=== PATIENT | female | born 1990 | race Caucasian/White ===

== ENCOUNTER 2022-02-08 18:25 | Observation (INO) | payer MEDICAID, SELFPAY ==
[2022-02-08 18:27] VITALS: BP 121/85; PULSE 88; RESP 16; TEMP 36.1; O2SAT 97; BMI 24.8
--- NOTE | 2022-02-08 19:03 | EX.ED.SAOD ---
HPI History of Present Illness Chief Complaint: Substance Abuse Detail of Chief Complaint: Requesting detox Informant: patient and parent Onset/Context/Timing Onset: Month(s) Timing: Continuous Current Severity: Mild Maximum Severity: Mild Narrative Narrative: 31-year-old female with history of PTSD and polysubstance abuse. States she has been abusing fentanyl and heroin. She does skin popping. Is requesting detox. States she has been detoxed around 2 dozen times in the past. Last use was several hours ago. Last several days has had some withdrawal symptoms currently none. Prior similar symptoms: Yes Recent Illness/Hospitalization: No PFSH PFSH Home Medications No Known/Unobtainable [No Known Home Medications] 10/02/13 [History Last Taken Unknown] Allergy/AdvReac Type Severity Reaction Status Date / Time No Known Allergies Allergy Verified 02/08/22 18:26 Social History Smoking Status: Current every day smoker tobacco type: cigarettes ROS ROS ED ROS Narrative Withdrawal symptoms. Review of Systems ROS Unobtainable: Denies due to encephalopathy Constitutional Constitutional ED: Denies chills or fever(s) ENT ENT ED: Denies ear pain Cardiovascular Cardiovascular: Denies chest pain Respiratory/Chest Respiratory/Chest: Denies cough or dyspnea Gastrointestinal Gastrointestinal: Reports diarrhea, nausea and vomiting; Denies abdominal pain Genitourinary Genitourinary ED: Denies dysuria Musculoskeletal Musculoskeletal: Denies arthralgias Integumentary Denies abscess Neurologic Neurologic: Denies headache(s) Psychiatric Psychiatric: Reports anxiety Endocrine Endocrinology: Denies cold intolerance Hematologic/Lymphatic Hematologic/Lymphatic: Denies easy bleeding Allergic/Immunologic Allergic/Immunologic ED: Denies mouth swelling or tongue swelling EXAM Physical Exam Narrative Exam Narrative: 31-year-old female no acute distress.. Patient emotional and tearful. Speaking rapidly. Mom present in room. H EENT exam unremarkable. Poor dentition. Neck nontender no lymphadenopathy. Lungs clear to auscultation bilaterally. Heart regular rate and rhythm rate about 90 no murmur. Chest wall nontender. Abdomen soft nontender. Moving all 4 extremities. Skin popping sewell on her hands and chest. Neurologically she is awake and alert. No focal motor or Const Vital Signs: 02/08/22 18:27 Temperature 97.0 F L Temperature Source Temporal Pulse Rate 88 Respiratory Rate 16 Blood Pressure 121/85 H Blood Pressure Mean 97 Pulse Ox 97 Oxygen Delivery Method Room Air Positive well nourished and well developed; Negative for obese, cachectic, contractures or unkempt General Appearance ED: well developed and NAD; Negative for unkempt, cachectic, contractures or pallor Nutritional Appearance: Negative for cachectic or obese HEENT Reports moist mucous membranes; Denies dry mucous membranes atraumatic; Negative for trauma or tenderness Mouth ED: No dry mucous membranes Mouth: No dry mucous membranes Eyes PERRL and EOMs intact bilaterally General Eye ED: Negative for pale conjunctiva or scleral icterus Neck no lymphadenopathy, supple and no JVD Thyroid: Negative for tender Lymph Lymphatic: no lymphadenopathy noted; Negative for lymphadenopathy or other Chest Wall inspection of chest normal and palpation of chest normal Resp normal respiratory effort and clear to auscultation bilaterally Effort and Inspection: Negative for retractions Auscultation: Negative for rales, rhonchi or wheezes Cardio regular rate, regular rhythm, S1 normal heart sound, S2 normal heart sound and no murmurs Rate: Negative for bradycardia or tachycardic GI soft to palpation, non-tender, non-distended and no masses Inspection: Negative for abdominal distention Auscultation: Negative for hyperactive bowel sounds Palpation: Negative for tender or guarding Back/Spine no CVA tenderness General Back: Negative for CVA tenderness Cervical Spine: Negative for cervical spine tenderness Thoracic Spine / Upper Back: Negative for thoracic spinal tenderness Lumbar Spine / Lower Back: Negative for lumbar spinal tenderness Coccyx: Negative for swelling Neuro oriented x3 and CN's II-XII intact bilaterally Sensorium / Orientation: alert, oriented to person, oriented to place and oriented to time; Negative for confused, lethargic or stuporous Speech: speech normal Motor Exam: strength 5/5 throughout Psych mental status grossly normal and thought process normal Appearance: Negative for unkempt Attitude: No belligerent, No agitated, No aggressive and No hostile Mood & Affect: anxious and tearful Skin Skin Narrative: Skin popping sewell. General Skin Exam: Negative for jaundice or pallor Lesions: no lesions Rashes: no rashes MDM MDM MDM Narrative Medical decision making narrative: 31-year-old female has had multiple detoxes over many years. Last use was in the last several hours. Requesting detox for heroin and fentanyl abuse. Discussed with the hospitalist admission but the patient wants to see if she can first get into a longer term detox facility. Hospitalist on page for admission. INR written for the patient's admission. Nurse walked into give her a nicotine patch. Patient was extremely rude and cursed at the nurse. And then left without being discharged. Discharge Plan Triage Chief Complaint: Substance Abuse ED Provider: José Arauz Dx/Rx/DC Orders Clinical Impression: Polysubstance abuse, Heroin abuse, Desire for detoxification Prescriptions: No Action No Known Home Medications Primary Care Provider: Care Physician,No Primary Referrals: Care Physician,No Primary [Primary Care Provider] - Disposition Disposition: Elopement
--- NOTE | 2022-02-08 19:35 | ED.RN ---
patient found outside smoking cigarette, patient was reminded that this is a nonsmoking facility. Pt informed that she can no longer smoke while she is a patient of the hospital, pt informed again that all belonings will be taken when she is admitted for detox. security and HRO at bedside. Pt was informed that if she left the building again she would be considered LAMA.
--- NOTE | 2022-02-08 20:26 | ED.RN ---
This RN called to the room where patient and HRO are speaking. Patient is trying to leave again to smoke. This RN reminds her that she can not do that she will no longer be a patient if she leaves. This RN offered patient nictoine patch. Pt states fuck you and your nicotine patch and patient stormed past HRO and this RN and went outside to smoke. Pt and mother enter ED again, pt states she didn't understand the rules. Pt now back in the room, patient is agreeable and signs the rules for the RAMP program. Pt undresses and places everything in patient bags. Nicotine patch placed per JUN. Pt requesting STD's checks. Dr Arauz and Dr Haywood made aware.
--- NOTE | 2022-02-08 20:37 | PCM.HP.STD ---
HPI - General General Date of Admission: 02/08/22 Date of Service: 02/08/22 Chief Complaint: Acute Opiate Withdrawal HPI Narrative The patient is a 31 y/o F w/ PMHx: Polysubstance abuse (fentanyl, history of heroin prior, reports snorting, uses 3.5 gm daily), Borderline personality disorder/PTSD/Anxiety and Depression, Tobacco use, Chronic neuropathy who presents to the [facility] ED on 02/08/22 w/ noted acute opiate withdrawal onset starting just prior to presentation following last dose prior to presentation but less usage on day of presentation than the day prior with generalized body aches and pains, fatigue, restless leg, notable increased anxiety. She also notes a left breast wound that drained purulent material prior and now is firm underneath with no redness on the breast itself, mildly tender without fevers. Patient interested in attaining clean status. In the ED included T 97, heart rate 88, BP 121/85, respiratory rate 16, 97% on room air. Hospital service ordered CBC, CMP and urine testing as well as requested urine drug screen and ethyl alcohol level. Discussed with ED staff and noted that patient will need to remain in the ED until urine was confirmed negative. In the ED patient was initially agitated and wanted to leave several times to smoke but eventually calmed and returned to her room. [facility] Medical History Anxiety and depression Borderline personality disorder Polysubstance abuse PTSD (post-traumatic stress disorder) Tobacco use Home Medications No Known/Unobtainable [No Known Home Medications] 10/02/13 [History Last Taken Unknown] Allergy/AdvReac Type Severity Reaction Status Date / Time No Known Allergies Allergy Verified 02/08/22 18:26 Family History (Updated 02/08/22 @ 20:[address] Malia Haywood MD) Mother Borderline personality disorder other (Patient notes her father young without medical issues (HD, DM, CA) in MVA.) Surgical History (Updated 02/08/22 @ 20:[address] Malia Haywood MD) History of appendectomy History of cholecystectomy Social History (Updated 02/08/22 @ 20:[address] Malia Haywood MD) housing: other details: Lives with her grandmother. Smoking Status: Current every day smoker tobacco type: cigarettes Smoking packs per day: 1.5 Smoking cigarettes per day: 30.0 alcohol intake: current alcohol intake frequency: a few times a week substance use type: marijuana and other details: Currently reports using fentanyl, snorting. ROS ROS Narrative Admission Review of Systems: CONSTITUTIONAL: No weight loss, fever, chills, + weakness or fatigue. HEENT: Eyes: No visual loss, blurred vision, double vision or yellow sclerae. Ears, Nose, Throat: No hearing loss, sneezing, congestion, runny nose or sore throat. SKIN: + Significant abrasions, noninfected appearing wounds, scabbed regions, picked regions, left breast with recent drained abscess. CARDIOVASCULAR: No chest pain, chest pressure or chest discomfort, palpitations, edema, orthopnea, syncopal events. RESPIRATORY: No shortness of breath, cough or sputum, wheezing, hemoptysis. GASTROINTESTINAL: + anorexia, nausea, abdominal cramping, No vomiting or diarrhea, melena, BRBPR. GENITOURINARY: No dysuria, frequency, urgency or retention. NEUROLOGICAL: No headache, dizziness, syncope, paralysis, ataxia, numbness or tingling in the extremities, focal weakness, change in bowel or bladder control, seizure. MUSCULOSKELETAL: + muscle, back pain, joint pain or stiffness. HEMATOLOGIC: No anemia, bleeding or bruising. LYMPHATICS: No enlarged nodes. No history of splenectomy. PSYCHIATRIC: + history of depression or anxiety. ENDOCRINOLOGIC: No reports of sweating, cold or heat intolerance. No polyuria or polydipsia. ALLERGIES: No history of asthma, hives, eczema or rhinitis. Vital Signs Vital Signs Vital Signs: 02/08/22 18:27 Temperature 97.0 F L Temperature Source Temporal Pulse Rate 88 Respiratory Rate 16 Blood Pressure 121/85 H Blood Pressure Mean 97 Pulse Ox 97 Oxygen Delivery Method Room Air Weight Weight: 158 lb 8.198 oz Body Mass Index (BMI) 24.8 Physical Exam Narrative Physical Examination: General: Awake, alert, oriented x 3, initially extremely agitated, initially going to leave but eventually calmed and went back to her room, appears to be restless. Skin: Normal color, normal turgor, no icterus, no cyanosis except for significant extremity, especially bilateral upper extremity and hand picked regions, abrasions, wounds that appear noninfected as well as left breast with infra areola region that had been opened by her and reportedly had purulent drainage but now unable to express anything but there is a firm region underneath but no erythema on the skin itself. HEENT: AT/NC, EOMI, PERRLA, dry MM, no carotid bruits or JVD noted, several picked regions on her face/scarring. Lungs: Diminished, greater bases, appropriate effort, no rales, ronchi or wheezing. Heart: Mildly tachycardic with rhythm; no gallop, rub audible. Abdomen: Soft, mild generalized discomfort with no rebound or guarding, ND, hyperactive BS, no HSM. Extremities: No cyanosis, clubbing, or edema, see skin. Neurological: Patient awake, alert, oriented as noted cognitive function intact; pupils equally reactive to light and accommodation, cranial nerves II-XII grossly normal, moving all 4 extremities, no focal deficits, strength preserved, restless,. Psychiatric: Affect appears restless, agitated, notes she is currently depressed and is anxious. Assessment & Plan Assessment/Plan (1) Opiate withdrawal: PLAN: Plan The patient is a 31 y/o F w/ PMHx: Polysubstance abuse (fentanyl, history of heroin prior, reports snorting, uses 3.5 gm daily), Borderline personality disorder/PTSD/Anxiety and Depression, Tobacco use, Chronic neuropathy who presents to the [facility] ED on 02/08/22 w/ noted acute opiate withdrawal onset starting just prior to presentation following last dose prior to presentation but less usage on day of presentation. #1. Acute Opiate Withdrawal: Will admit to [facility] if testing negative, routine labs including CBC, CMP, urine for drug screen, EtOH pending upon evaluation, will initiate and continue on protocol with tapering course of Subutex, as needed tylenol, ibuprofen, bowel regimen, gabapentin, Bentyl, Vistaril, methocarbamol, clonidine, PRN nightly trazodone for insomnia, IV fluids, IV antiemetics. Once patient clinically improved and completion of taper nearing will plan consultation with case management for transition to next level of rehabilitation care. #2. Left Breast Recent Draining Abscess: Firm region, no erythema, no drainage able to be expressed, firm region underneath, will obtain breast US to be cautious. #3. Polysubstance Abuse: Will obtain HIV and hepatitis panel to be cautious given polysubstance abuse history. Patient currently would not candidate for hep C treatment currently as needs to be clean, sober x 6 months, documented attendance NA or AA meetings, counseling and ongoing negative drug screens. #4. Anxiety and Depression/PTSD/Borderline Personality disorder: Attempting to clarify her home regimen, poor historian regarding her medications. #5. Tobacco Abuse: Encouraged cessation, inpatient consultation per RT, NR if desired. #6. DVT Prophylaxis: Low risk. Charges/Coding Visit Charges Inpatient E&M: 63520 Init Hosp L3
[2022-02-08 20:51] LABS: Internal QC Validated? YES +Cl - CLEAR BKGD; Pregnancy, Urine Negative Negative
[2022-02-08 20:57] LABS: Mucous, Urine 0 SEEN /hpf (<or=2+); Red Blood Cells-Urine 0 SEEN /hpf (0-5)
[2022-02-08 20:58] LABS: Color, Urine Yellow (Yellow); Glucose, Dipstick Normal (Normal); Ketone-Dipstick 5 mg/dl (Negative); Leukocyte Esterase-Dipstick 500 /ul (Negative); Nitrite-Dipstick Positive (Negative); Occult Blood-Urine 25 /ul (Negative); Protein-Dipstick 30 mg/dl (Negative); Specific Gravity, Urine 1.025 (1.002-1.030); Urine Bilirubin Dipstick Negative (Negative); Urine Clarity Cloudy (Clear); Urine Urobilinogen Normal (Normal)
[2022-02-08 21:04] LABS: Bacteria 2+ /hpf (None Seen); Squamous Epithelial Cells - UA 0-5 SEEN /hpf (5-10); White Blood Cells 25-50 SEEN /hpf (0-5)
[2022-02-08 21:05] LABS: Amphetamine Urine VISTA NEGATIVE (<1000 ng/mL); Barbiturate Urine VISTA NEGATIVE (< 200 ng/mL); Benzodiazepine Urine VISTA NEGATIVE (< 200 ng/mL); Cocaine Urine VISTA POSITIVE (< 300 ng/mL); Ecstacy Urine VISTA POSITIVE (< 500 ng/mL); Methadone Urine VISTA NEGATIVE (< 300 ng/mL); PCP Urine VISTA NEGATIVE (< 25 ng/mL); THC Urine VISTA POSITIVE (< 50 ng/mL); Vista UDS pH Range 6
[2022-02-08 21:14] VITALS: BP 120/79; PULSE 77; RESP 18; TEMP 36.5; O2SAT 97
--- NOTE | 2022-02-08 21:30 | ED.RN ---
pt refusing blood work, states they can never get me i dont want [address] Arauz and Dr Haywood aware and ok with patient being admitted without labs at this time.
[2022-02-08 21:52] VITALS: BP 113/65; PULSE 67; RESP 18; TEMP 36.6; O2SAT 99
[2022-02-08 22:15] VITALS: BMI 24.8
[2022-02-08 22:32] LABS: Chlamydia Trachomatis by PCR Negative (Negative); Neisserai gonorrhoeae by PCR Positive (Negative); Probe Check PASS
[2022-02-08 22:44] VITALS: O2SAT 99
--- NOTE | 2022-02-08 22:56 | PCM.HOSP.N ---
Hospitalist Note DNA came back positive. Patient refusing IV placement. Will give ceftriaxone 500 mg IM x1 dose. Start doxycycline 100 mg p.o. twice daily and metronidazole 500 mg p.o. twice daily for 14 days each.
[2022-02-08] MEDS: Ceftriaxone 500 MG Vial IM (23:31)
[2022-02-08] MEDS: metroNIDAZOLE 500 MG Tablet PO (23:37)
[2022-02-08] MEDS: Doxycycline 100 MG CAPSULE PO (23:37)
[2022-02-09 00:35] LABS: ALB/GLOB Ratio 0.7 RATIO (0.9-2.4); AST(SGOT) 26 U/L (15-37); Alanine Aminotransfer ALT/SGPT 35 U/L (13-56); Albumin, Serum 2.8 g/dL (3.2-5.0); Alkaline Phosphatase 89 U/L (45-117); Anion Gap 7 (5-15); BUN 10 mg/dL (7-18); BUN/Creat Ratio 17.1 RATIO (10-20); Calcium,Total 8.5 mg/dL (8.5-10.1); Chloride 105 mmol/L (98-107); Creatinine, Serum 0.58 mg/dL (0.55-1.02); EST Glomerular Filtration Rate 126 mL/min (>60); Est Glom Filt Rate - Afr Amer 152 mL/min (>60); Estimated Creatinine Clearance 129.15 ml/min; Globulin 3.8 g/dL (2.2-4.2); Glucose 99 mg/dL (74-106); Potassium 2.7 mmol/L (3.5-5.1); Protein, Total 6.6 g/dL (6.4-8.2); Sodium Level 140 mmol/L (136-145)
[2022-02-09 03:30] VITALS: BP 117/68; PULSE 72; RESP 18; TEMP 37.1; O2SAT 97
[2022-02-09] MEDS: Potassium Chloride Oral Tablet 20 MEQ 60 MEQ PO (03:37)
--- NOTE | 2022-02-09 05:55 | US_ITS ---
STUDY: ULTRASOUND BREAST - LEFT REASON FOR EXAM: Female, 31 years old. History of recent breast abscess. TECHNIQUE: Axial and longitudinal images of the LEFT breast were performed with a high resolution ultrasound transducer. # OF IMAGES: 20 COMPARISON: None. FINDINGS: LEFT Breast: The inferior portion of the breast was examined with ultrasound. There is evidence of a dilated subareolar ducts. No abnormal fluid collection or abscess is seen. US/Breast Limited Unilateral IMPRESSION: Dilated ducts. No abnormal fluid collection or abscess is seen. ASSESSMENT CATEGORY: BIRADS Category 2: Benign. A letter regarding these results will be sent to the patient by the facility within 30 days. Electronically Signed: Tico Chavez MD at 12:35 EST ,
[2022-02-09 06:02] LABS: Absolute Lymphocyte Count 1.61 X10^3/uL (0.83-4.51); Absolute Neutrophil Count 3.8 X10^3/uL (2.0-7.7); Basophil# 0.03 X10^3/uL; Basophil% 0.5 % (0-1); Eosinophils% 1.6 % (0-5); Hematocrit 41.7 % (37-47); Hemoglobin 13.9 g/dL (12.0-15.0); Lymphocyte # 1.61 X10^3/ul (0.83-4.51); Lymphocyte % 25.2 % (19-41); Mean Corp Hgb Conc 33.3 g/dL (32-36); Mean Corpuscular Hgb 28.4 pg (27.0-32.0); Mean Corpuscular Volume 85.3 fL (81-99); Mean Platelet Vol. 11.5 fl (6.2-12.0); Monocyte# 0.86 X10^3/uL; Monocyte% 13.5 % (0-10); NRBC Flagged by Analyzer 0 % (0-5); Neutrophil # 3.77 X10^3/uL (2.7-7.7); Neutrophil % 58.9 % (47-70); Platelet Count 294 K/mm3 (150-450); RBC Distribution Width CV 13.7 % (11.6-14.6); RBC Distribution Width SD 42.5 fl (35.1-43.9); Red Blood Count 4.89 M/mm3 (4.2-5.4); White Blood Count 6.4 K/mm3 (4.4-11.0)
[2022-02-09 08:00] VITALS: O2SAT 97
[2022-02-09 08:33] LABS: HIV - WCH Non-Reactive (Nonreactive)
[2022-02-09 08:43] LABS: Hepatitis B Surface Antibody Reactive; Hepatitis B Surface Antigen Non-Reactive (Nonreactive)
[2022-02-09 09:13] LABS: Hepatitis C Antibody REACTIVE (Nonreactive)
--- NOTE | 2022-02-09 10:16 | ADDICTION ---
This underwriter solicitation director attempted to meet with PT. PT was asleep and did not rouse to verbal queuing. This underwriter solicitation director will attempt to meet with PT at next visit on 02/10/2022.?
--- NOTE | 2022-02-09 10:36 | PN.HOSP_ITS ---
Subjective Subjective Patient seen and examined. She was drowsy but awoke to voice. She had no active complaitns. SHe is being treated for acute opioid withdrawal. Review of systems is otherwise negative. Objective Data Objective Data Vital Signs: Vital Signs Temp Pulse Resp BP Pulse Ox O2 Del Method 98.7 F 72 18 117/68 97 Room Air 02/09/22 03:30 02/09/22 03:30 02/09/22 03:30 02/09/22 03:30 02/09/22 08:00 02/09/22 08:00 Oxygen Delivery Method Room Air Weight: 158 lb 8.198 oz Body Mass Index (BMI) 24.8 Lab / Micro Data Result Diagrams: 02/09/22 05:37 02/09/22 00:01 Labs: Laboratory Results - last 24 hr 02/08/22 20:30: Urine Test Negative 02/08/22 20:30: Urine Opiates Screen NEGATIVE, Urine Methadone Screen NEGATIVE, Ur Barbiturates Screen NEGATIVE, Ur Phencyclidine Scrn NEGATIVE, Ur Amphetamines Screen NEGATIVE, MDMA (Ecstasy) Screen POSITIVE H, U Benzodiazepines Scrn NEGATIVE, Urine Cocaine Screen POSITIVE H, U Cannabinoids Screen POSITIVE H, Ur Drug Screen Comment 02/08/22 20:30: Chlam trachomat DNA PCR Negative, N.gonorrhoeae DNA (PCR) Positive H 02/08/22 20:30: Urine Color Yellow, Urine Clarity Cloudy, Urine pH 6.0, Ur Spe cific [place]lett 1.025, Urine Protein 30 H, Urine Glucose (UA) Normal, Urine Ketones 5 H, Urine Occult Blood 25 H, Urine Nitrite Positive H, Urine Bilirubin Negative, Urine Urobilinogen Normal, Ur Leukocyte Esterase 500 H, Urine RBC 0 SEEN, Urine WBC 25-50 SEEN, Ur Squamous Epith Cells 0-5 SEEN, Urine Bacteria 2+, Urine Mucus 0 SEEN 02/09/22 00:01: Sodium 140, Potassium 2.7 L*, Chloride 105, Carbon Dioxide 28.0, Anion Gap 7, BUN 10, Creatinine 0.58, Estim Creat Clear Calc 129.15, Est GFR (MDRD) Af Amer 152, Est GFR (MDRD) Non-Af 126, BUN/Creatinine Ratio 17.1, Glucose 99, Calcium 8.5, Total Bilirubin 0.20, AST 26, ALT 35, Alkaline Sharon sphatase 89, Total Protein 6.6, Albumin 2.8 L, Globulin 3.8, Albumin/Globulin Ratio 0.7 L 02/09/22 00:01: Ethyl Alcohol 3.0 02/09/22 00:01: HIV 1&2 Antibody Non-Reactive 02/09/22 00:01: Hep Bs Antigen Non-Reactive, Hep Bs Antibody Reactive, Hepatitis C Antibody REACTIVE 02/09/22 05:37: WBC 6.4, RBC 4.89, Hgb 13.9, Hct 41.7, MCV 85.3, MCH 28.4, MCHC 33.3, RDW Std Deviation 42.5, RDW Coeff of Ana 13.7, Plt Count 294, MPV 11.5, Immature Gran % (Auto) 0.300, Neut % (Auto) 58.9, Lymph % (Auto) 25.2, [place] % (Auto) 13.5 H, Eos % (Auto) 1.6, Baso % (Auto) 0.5, Absolute Neuts (auto) 3.8, Absolute Lymphs (auto) 1.61, Nucleated RBC % 0 Physical Exam Const Constitutional Narrative: drowsy but wakes to voice. Orientation / Consciousness: lethargic HEENT head/scalp atraumatic, moist oral mucous membranes and oropharynx normal Head and Scalp: normocephalic Mouth: oral and palatal mucosa normal Eyes PERRL, EOMs intact bilaterally and conjunctivae normal Neck no lymphadenopathy and supple Resp normal respiratory effort, no retractions, no use of accessory muscles and clear to auscultation bilaterally Cardio regular rate, regular rhythm, S1 normal heart sound, S2 normal heart sound and no murmurs GI normal to inspection, nondistended, normoactive bowel sounds, soft to palpation, non-tender and non-distended Extremity normal to inspection, full ROM and no clubbing, cyanosis or edema Skin Skin Narrative: firm induration at the 6 pm position of the left breast, below the nipple. minimal tenderness. Neuro oriented x3, CN's II-XII intact bilaterally and moves all extremities Psych Psych Narrative: lethargic, but awakes to voice Assessment & Plan Assessment/Plan (1) Opiate withdrawal: PLAN: Plan #Acute opioid withdrawal * on opioid withdrawal protocol with buprenorphine * adjunctive meds for symptomatic relief * urine tox positive for MDA, cocaine and cannabinoids * #Gonorrhea infection * patient had DNA positive for N gonorrheae * refused IV placement. So given IM ceftriaxone and now on PO doxycycline and PO metronidazole * #Hypokalemia * potassium is 2.7. was replaced; will trend * #left breast abscess * has a firm induction just inferior to the left nipple. Breast USG pending * consult general surgery based on breast US results * #Hep C infection * Hep screen showed positive Hep C antibody * treatment naive * will need to be clean for at least 6 months to be able to qualify for treatment * DVT prophylaxis; low risk, encouraged to ambulate Charges/Coding Visit Charges Inpatient E&M: 66991 Subs Hosp L2
[2022-02-09] MEDS: metroNIDAZOLE 500 MG Tablet PO (10:38)
[2022-02-09] MEDS: Doxycycline 100 MG CAPSULE PO (10:38)
[2022-02-09 11:05] VITALS: BP 101/55; PULSE 71; RESP 16; TEMP 36.4; O2SAT 98
--- NOTE | 2022-02-09 11:06 | NURSING ---
PT JUST NOW AWAKE FOR MORE THAN A MOMENT.
--- NOTE | 2022-02-09 11:18 | NURSING ---
PT STATED THIS PLACE IS WORTHLESS. I NEED A PHONE TO CALL MY MOM TO COME GET ME. PT UPSET THAT COWS SCORE WASN'T HIGH ENOUGH. NOTIFIED HER THAT IF SHE WANTED TO LEAVE, I WOULD GET AMA PAPERS AND THEN SHE COULD CALL AND GO . PT SIGNED AND USED MY PHONE TO ATTEMPT TO CALL. DR. SINCLAIR NOTIFIED BY KENTRELL GLYNN CHARGE.
--- NOTE | 2022-02-09 11:57 | NURSING ---
This nurse and primary RN down to lobby as requested by incinerator plant supervisor to talk with patient and incinerator plant supervisor. Discussed situation of leaving. Discussed the RAMP agreement regarding phone use prior to coming to unit. Discussed that medication and COWS score were discussed with patient on admission. Primary RN discussed situation of patient signing AMA with Boring Inspector. Discussed with Boring Inspector conversation had with Valorie Yates navigator of having received a phone call from [facility] with concerns of drug seeking behavior of patient. Valorie stated pt has stated she uses 4gm/day with the intention of obtaining more subutex.
--- NOTE | 2022-02-09 15:54 | DS.PCM_ITS ---
Providers Date of Admission: 02/08/22 Date of Discharge: 02/09/22 Primary Care Physician: No Primary Care Phys Reason For Visit: ACUTE OPIATE WITHDRAWAL Diagnosis Discharge Diagnosis (1) Opiate withdrawal: Status: Acute Code(s): F11.93 - Opioid use, unspecified with withdrawal Plan #Acute opioid withdrawal * on opioid withdrawal protocol with buprenorphine * adjunctive meds for symptomatic relief * urine tox positive for MDA, cocaine and cannabinoids * #Gonorrhea infection * patient had DNA positive for N gonorrheae * refused IV placement. So given IM ceftriaxone and now on PO doxycycline and PO metronidazole * #Hypokalemia * potassium is 2.7. was replaced; will trend * #left breast abscess * has a firm induction just inferior to the left nipple. Breast USG pending * consult general surgery based on breast US results * #Hep C infection * Hep screen showed positive Hep C antibody * treatment naive * will need to be clean for at least 6 months to be able to qualify for treatment * DVT prophylaxis; low risk, encouraged to ambulate Medications at Discharge Home Medications clonazepam 0.5 mg tablet 0.5 mg TID PRN Anxiety 02/08/22 gabapentin 800 mg tablet 800 mg Q6H 02/08/22 ropinirole 1 mg tablet 1 mg BID 02/08/22 Hospital Course Operations None Procedures None Summary of Care Provided Minutes Spent on Discharge: 45 Hospital Course: Patient is a 31-year-old female with a past medical history of polysubstance abuse and borderline personality disorder who was admitted through the ED on 02/08/2022 for acute opioid withdrawal. Her last dose was just prior to admissi on. She complained of generalized body aches and pains and fatigue as well as restless legs. She also noted a left breast wound and swelling which had been draining pus. She was admitted and managed for acute opioid withdrawal. Urine tox was positive for cannabinoids cocaine and MDMA. She was admitted and managed for acute opioid withdrawal and also possible breast abscess. She was started on opioid withdrawal protocol with buprenorphine. Of note, patient's hepatitis panel was positive for hep C antibody and she was treatment na?ve. She was counseled that she would need to be clean for at least 6 months before she qualified for treatment. Of note, she was also positive for Neisseria gonorrhea DNA and was given IV and Keppra trazodone and also p.o. doxycycline and p.o. metronidazole. Patient had a left breast ultrasound which showed dilated ducts but no abnormal fluid collection or abscess seen. Patient signed herself out AGAINST MEDICAL ADVICE on 02/09/2022. Patient was seen and examined on the day of discharge. At time of review she was somnolent but awoke to voice was not really communicative. Review of systems was negative. Physical Exam Const Constitutional Narrative: drowsy but wakes to voice. Orientation / Consciousness: lethargic HEENT head/scalp atraumatic, moist oral mucous membranes and oropharynx normal Eyes PERRL, EOMs intact bilaterally and conjunctivae normal Neck no lymphadenopathy and supple Resp normal respiratory effort, no retractions, no use of accessory muscles and clear to auscultation bilaterally Cardio regular rate, regular rhythm, S1 normal heart sound, S2 normal heart sound and no murmurs GI normal to inspection, nondistended, normoactive bowel sounds, soft to palpation, non-tender and non-distended Extremity normal to inspection, full ROM and no clubbing, cyanosis or edema Skin Skin Narrative: firm induration at the 6 pm position of the left breast, below the nipple. minimal tenderness. Neuro oriented x3, CN's II-XII intact bilaterally and moves all extremities Psych Psych Narrative: lethargic, but awakes to voice Weight / BMI Weight Weight: 158 lb 8.198 oz Body Mass Index (BMI) 24.8 ABG / Lab / Microbiology Data Result Diagrams: 02/09/22 05:37 02/09/22 00:01 Laboratory: Laboratory Results - last 24 hr 02/08/22 20:30: Urine Test Negative 02/08/22 20:30: Urine Opiates Screen NEGATIVE, Urine Methadone Screen NEGATIVE, Ur Barbiturates Screen NEGATIVE, Ur Phencyclidine Scrn NEGATIVE, Ur Amphetamines Screen NEGATIVE, MDMA (Ecstasy) Screen POSITIVE H, U Benzodiazepines Scrn NEGATIVE, Urine Cocaine Screen POSITIVE H, U Cannabinoids Screen POSITIVE H, Ur Drug Screen Comment 02/08/22 20:30: Chlam trachomat DNA PCR Negative, N.gonorrhoeae DNA (PCR) Positive H 02/08/22 20:30: Urine Color Yellow, Urine Clarity Cloudy, Urine pH 6.0, Ur Specific [place] 1.025, Urine Protein 30 H, Urine Glucose (UA) Normal, Urine Ketones 5 H, Urine Occult Blood 25 H, Urine Nitrite Positive H, Urine Bilirubin Negative, Urine Urobilinogen Normal, Ur Leukocyte Esterase 500 H, Urine RBC 0 SEEN, Urine WBC 25-50 SEEN, Ur Squamous Epith Cells 0-5 SEEN, Urine Bacteria 2+, Urine Mucus 0 SEEN 02/09/22 00:01: Sodium 140, Potassium 2.7 L*, Chloride 105, Carbon Dioxide 28.0, Anion Gap 7, BUN 10, Creatinine 0.58, Estim Creat Clear Calc 129.15, Est GFR (MDRD) Af Amer 152, Est GFR (MDRD) Non-Af 126, BUN/Creatinine Ratio 17.1, Glucose 99, Calcium 8.5, Total Bilirubin 0.20, AST 26, ALT 35, Alkaline Phosphatase 89, Total Protein 6.6, Albumin 2.8 L, Globulin 3.8, Albumin/Globulin Ratio 0.7 L 02/09/22 00:01: Ethyl Alcohol 3.0 02/09/22 00:01: HIV 1&2 Antibody Non-Reactive 02/09/22 00:01: Hep Bs Antigen Non-Reactive, Hep Bs Antibody Reactive, Hepatitis C Antibody REACTIVE 02/09/22 05:37: WBC 6.4, RBC 4.89, Hgb 13.9, Hct 41.7, MCV 85.3, MCH 28.4, MCHC 33.3, RDW Std Deviation 42.5, RDW Coeff of Ana 13.7, Plt Count 294, MPV 11.5, Immature Gran % (Auto) 0.300, Neut % (Auto) 58.9, Lymph % (Auto) 25.2, [place] % (Auto) 13.5 H, Eos % (Auto) 1.6, Baso % (Auto) 0.5, Absolute Neuts (auto) 3.8, Absolute Lymphs (auto) 1.61, Nucleated RBC % 0 Microbiology: Microbiology 02/08/22 20:30 Urine, Clean Catch Urine Culture - Preliminary GNR lactose sole inker Radiography Diagnostic Testing: Radiology Impression Breast Ultrasound 02/09/22 05:55 IMPRESSION: Dilated ducts. No abnormal fluid collection or abscess is seen. ASSESSMENT CATEGORY: BIRADS Category 2: Benign. A letter regarding these results will be sent to the patient by the facility within 30 days. Electronically Signed: Tico Chavez MD at 12:35 EST , Meaningful Use Info Meaningful Use Diagnoses (Choose all that apply): None applicable Discharge Plan Admission Admit Date/Time: 02/08/22 20:31 Attending Provider: Nella Pierson Primary Care Provider: Care Physician,No Primary Consulting Providers: Malia Haywood Discharge Orders/Prescriptions Prescriptions: No Action ropinirole 1 mg tablet 1 mg BID Label Comments: TAKE 1 TABLET BY MOUTH TWICE A DAY FOR RESTLESS LEG SYNDROME clonazepam 0.5 mg tablet 0.5 mg TID PRN (Reason: Anxiety) Label Comments: TAKE 1 TABLET BY MOUTH 3 TIMES A DAY NEEDED gabapentin 800 mg tablet 800 mg Q6H Label Comments: TAKE 1 TABLET BY MOUTH 4 TIMES A DAY Referrals / Follow Up: Care Physician,No Primary [Primary Care Provider] - Disposition Disposition (needs filled in before D/C Order can be placed): Against Medical Advice Charges/Coding Visit Charges Inpatient E&M: 17705 Disch Hosp
== END 2022-02-09 11:18 | disposition left against medical advice (07) | DRG 770 ==
LOC: ED 20:53 → MS3 02-09 07:13
PROVIDERS: Internal Medicine; Admitting Provider Family Medicine; Emergency Provider Emergency Medicine; Visit Provider Student in an Organized Health Care Education/Training Program
DX: F11.23 Opioid dependence with withdrawal (principal); F60.3 Borderline personality disorder; A54.9 Gonococcal infection, unspecified; F12.90 Cannabis use, unspecified, uncomplicated; G62.9 Polyneuropathy, unspecified; F17.210 Nicotine dependence, cigarettes, uncomplicated; E87.6 Hypokalemia; B19.20 Unspecified viral hepatitis C without hepatic coma; F43.10 Post-traumatic stress disorder, unspecified; N61.1 Abscess of the breast and nipple; F41.9 Anxiety disorder, unspecified; Z79.899 Other long term (current) drug therapy
CPT/HCPCS: 76642; 80053; 80307; 81001; 81025; 82077; 85025; 86703; 86706; 86803; 87077; 87086; 87088; 87186; 87340; 87491; 87591; 96372; 99221; 99251; 99283; G0378; G0463